=== PATIENT | female | born 1985 | race African-American/Black ===

== ENCOUNTER 2023-02-08 19:36 | Emergency (ER) | payer MEDICARE, MEDICAID ==
[~2023-02-08] VITALS: Ht 162.6 cm; Wt 152.4 kg
[2023-02-08] VITALS (8 sets, daily range): BP systolic 169–204; BP diastolic 97–129
== END 2023-02-08 21:30 | disposition home or self-care (01) ==
LOC: ED 19:36
DX: J03.90 Acute tonsillitis, unspecified (principal); I10 Essential (primary) hypertension; J45.909 Unspecified asthma, uncomplicated; M10.9 Gout, unspecified
CPT/HCPCS: J0561

== ENCOUNTER 2024-04-14 14:13 | Emergency (ER) | payer MEDICARE, MEDICAID ==
[~2024-04-14] VITALS: Ht 162.6 cm; Wt 163.2 kg
[~2024-04-14 14:13] MED LIST: ALLOPURINOL100 MG PO; CLONIDINE0.1 MG PO; CYCLOBENZAPRINE10 MG PO; ESCITALOPRAM OX10 MG PO; FAMOTIDINE20 M1 PO; HYDROXYCHLOROQ200 MG PO; KEFLEX500 MG PO; LASIX20 MG PO; LORTAB 1010 MG PO; LOSARTAN POTASS50 MG PO; LOVASTATIN40 M1 PO; NAPROXEN500 MG PO; NIFEDIPINE ER30 M1 PO; PREDNISONE10 MG PO; PREDNISONE20 MG PO; PROVENTIL HFA108 MCG
[2024-04-14 14:22] VITALS: BP 143/77
[2024-04-14 14:30] VITALS: BP 157/75
[2024-04-14 14:45] VITALS: BP 152/70
[2024-04-14] MEDS ORDERED: KETOROLAC TROMETHAMINE 30 MG/ML SDV IV ONE (14:45)
[2024-04-14] MEDS ORDERED: methylPREDNISolone SODIUM SUCC 125 MG/2 ML SDV IV ONE (14:45)
[2024-04-14] MEDS ORDERED: IPRATROPIUM-Albuterol 0.5MG-2.5MG/3 ML NEB ONE ×2 (14:50)
[2024-04-14] MEDS ORDERED: OXYMETAZOLINE HCL 15 ML/BTL ONE (14:50)
[2024-04-14 15:47] LABS: BASO% 0.4 % (0-3); EOS% 1.1 % (0-8); HEMATOCRIT 29.3 % (37.0-47.0); HEMOGLOBIN 8.8 g/dl (12.0-16.0); IMMATURE GRANULOCYTES 0.6 % (0.0-5.0); LYMPH% 20.3 % (15-41); MEAN CELL VOLUME 102.8 fL CALC (80.0-100.0); MEAN CORPUSCULAR HGB 30.9 pG CALC (26.0-32.0); MONO% 7.8 % (2-13); NEUT# 3.31 thou/uL (2.00-7.15); NEUT% 69.8 % (42-76); RED BLOOD COUNT 2.85 mill/uL (4.20-5.60); RED CELL DISTRI WIDTH 14.8 % (11.5-15.5)
[2024-04-14 16:03] LABS: ALBUMIN 4.4 g/dL (3.2-5.0); CREATININE 3.5 mg/dL (0.5-1.0); POTASSIUM 4.9 mmol/l (3.5-5.1); TOTAL PROTEIN 8.4 g/dL (6.3-8.2)
[2024-04-14 16:06] LABS: BILIRUBIN, TOTAL 0.9 mg/dL (0.02-1.3)
[2024-04-14] MEDS ORDERED: VENTOLIN HFA108 MCG PO ×2 (16:24→16:50)
[2024-04-14] MEDS ORDERED: PREDNISONE50 MG PO ×2 (16:24→16:50)
[2024-04-14] MEDS ORDERED: AMOX/K CLAV875 M1 PO ×2 (16:24→16:50)
[2024-04-14] MEDS ORDERED: ZPAK PO ×2 (16:24→16:50)
[2024-04-14 17:16] VITALS: BP 157/75
== END 2024-04-14 16:45 | disposition home or self-care (01) ==
LOC: ED 14:13
PROVIDERS: Family Medicine
DX: J18.9 Pneumonia, unspecified organism (principal); I10 Essential (primary) hypertension; E66.9 Obesity, unspecified; J45.909 Unspecified asthma, uncomplicated; F17.210 Nicotine dependence, cigarettes, uncomplicated; Z20.822 Contact with and (suspected) exposure to COVID-19

== ENCOUNTER 2024-10-21 11:38 | Emergency (ER) | payer MEDICARE, MEDICAID ==
[2024-10-21] VITALS (11 sets, daily range): BP systolic 46–142; BP diastolic 34–81
[~2024-10-21] VITALS: Ht 162.6 cm; Wt 154.2 kg
[~2024-10-21 11:38] MED LIST changes: +AMOX/K CLAV875 M1 PO; +PREDNISONE50 MG PO; +VENTOLIN HFA108 MCG PO; +ZPAK PO
[2024-10-21] MEDS ORDERED: ONDANSETRON HCl 4 MG/2 ML SDV IV ONE (12:25)
[2024-10-21] MEDS ORDERED: MORPHINE SULFATE 4 MG/ML VIAL IV ONE (12:25)
[2024-10-21 13:10] LABS: BASO% 0.3 % (0-3); EOS% 2.8 % (0-8); HEMATOCRIT 32.7 % (37.0-47.0); HEMOGLOBIN 9.5 g/dl (12.0-16.0); IMMATURE GRANULOCYTES 0.3 % (0.0-5.0); LYMPH% 20.8 % (15-41); MEAN CELL VOLUME 106.9 fL CALC (80.0-100.0); MEAN CORPUSCULAR HGB CONC 29.1 g/dL CAL (32.0-36.0); MONO% 6.5 % (2-13); NEUT# 4.78 thou/uL (2.00-7.15); NEUT% 69.3 % (42-76); RED BLOOD COUNT 3.06 mill/uL (4.20-5.60); RED CELL DISTRI WIDTH 15.4 % (11.5-15.5)
[2024-10-21 13:23] LABS: ALBUMIN 4.1 g/dL (3.2-5.0); BILIRUBIN, TOTAL 0.6 mg/dL (0.02-1.3); CREATININE 3.5 mg/dL (0.5-1.0); POTASSIUM 4.3 mmol/l (3.5-5.1); TOTAL PROTEIN 7.7 g/dL (6.3-8.2)
[2024-10-21 13:49] LABS: URINE BILIRUBIN - DIPSTICK Negative (NEGATIVE); URINE BLOOD DIPSTICK Negative (NEGATIVE); URINE GLUCOSE - DIPSTICK Negative (NEGATIVE); URINE KETONE Negative (NEGATIVE); URINE LEUK ESTERASE Negative (NEGATIVE); URINE NITRITE - DIPSTICK Negative (Negative); URINE PH 5.5 (4.5-8.0); URINE PROTEIN - DIPSTICK >=300 mg/dL (NEG-TRACE); URINE UROBILINOGEN - DIPSTICK 0.2 E.U./dL (0.2)
[2024-10-21 13:52] LABS: URINE COLOR Yellow
[2024-10-21 13:59] LABS: URINE EPITHELIAL CELLS FEW EPI/hpf (0-FEW)
== END 2024-10-21 17:06 | disposition home or self-care (01) ==
LOC: ED 11:38
PROVIDERS: Family Medicine
DX: S70.01XA Contusion of right hip, initial encounter (principal); S70.11XA Contusion of right thigh, initial encounter; M32.9 Systemic lupus erythematosus, unspecified; I12.9 Hypertensive chronic kidney disease with stage 1 through stage 4 chronic kidney disease, or unspecified chronic kidney disease; N18.9 Chronic kidney disease, unspecified; M10.9 Gout, unspecified; E66.9 Obesity, unspecified; W10.9XXA Fall (on) (from) unspecified stairs and steps, initial encounter; Y92.009 Unspecified place in unspecified non-institutional (private) residence as the place of occurrence of the external cause; Z72.0 Tobacco use
CPT/HCPCS: J2405